=== PATIENT | female | born 1980 | race Caucasian/White ===

== ENCOUNTER 2018-07-29 01:25 | Outpatient (CLI) | payer BC ==
[~2018-07-29 01:25] MED LIST: METH4TAB3 PO; METH500T PO
== END 2018-07-29 23:59 | disposition home or self-care (01) ==
LOC: DIABETIC 01:25
PROVIDERS: ATTEND Surgery
DX: E66.01 Morbid (severe) obesity due to excess calories (principal); Z72.89 Other problems related to lifestyle
CPT/HCPCS: 97802

== ENCOUNTER 2018-09-09 02:24 | Outpatient (CLI) | payer BC | END 2018-09-09 23:59 | disposition home or self-care (01) | LOC: DIABETIC 02:24 | PROVIDERS: ATTEND Surgery | DX: E66.01 Morbid (severe) obesity due to excess calories (principal) | CPT/HCPCS: G0108 ==

== ENCOUNTER 2019-02-24 08:16 | Outpatient (CLI) | payer BC, OTHER | END 2019-02-24 23:59 | disposition home or self-care (01) | LOC: RAD 08:16 | PROVIDERS: ATTEND Family Medicine | DX: M47.816 Spondylosis without myelopathy or radiculopathy, lumbar region (principal); M51.27 Other intervertebral disc displacement, lumbosacral region; M48.061 Spinal stenosis, lumbar region without neurogenic claudication; Z87.891 Personal history of nicotine dependence | CPT/HCPCS: 72148 ==

== ENCOUNTER → 2019-04-23 | Outpatient (CLI) | payer OTHER ==
[2019-04-23 10:11] LABS: BASOPHILS % (AUTO) 0.2 % (0-1); EOSINOPHILS # (AUTO) 0.1 X10'3 (0-0.9); EOSINOPHILS % (AUTO) 1.9 % (0-6); HEMATOCRIT 39.5 % (35.0-45.0); LYMPHOCYTES % (AUTO) 34.1 % (21-51); MEAN CORPUSCULAR HEMOGLOBIN 27.4 PG (27.0-31.0); MEAN CORPUSCULAR VOLUME 83.2 FL (78-98); MEAN PLATELET VOLUME 9.8 FL (7.4-10.4); MONOCYTES # (AUTO) 0.4 X10'3 (0-0.9); MONOCYTES % (AUTO) 6.7 % (2-12); NEUTROPHILS # (AUTO) 3.3 X10'3 (1.8-7.7); NEUTROPHILS % (AUTO) 57.1 % (42-75); PLATELET COUNT 215 X10'3 (140-440); RED BLOOD COUNT 4.75 X10'6 (4.20-5.60); WHITE BLOOD COUNT 5.8 X10'3 (4.5-11.0)
[2019-04-23 10:32] LABS: ALANINE AMINOTRANSFERASE 19 U/L (12-78); ALBUMIN 3.4 G/DL (3.4-5.0); ALKALINE PHOSPHATASE 39 IU/L (46-116); ANION GAP 6 (8-16); ASPARTATE AMINO TRANSFERASE 13 U/L (10-37); BILIRUBIN,TOTAL 0.5 MG/DL (0.1-1.0); BLOOD UREA NITROGEN 15 MG/DL (7-18); BUN/CREATININE RATIO 16.9 (6.6-38.0); CALCIUM 8.6 MG/DL (8.5-10.1); CHLORIDE 107 MMOL/L (99-107); CHOLESTEROL 145 MG/DL (0-200); CREATININE 0.89 MG/DL (0.40-0.90); GLUCOSE 93 MG/DL (70-104); HDL CHOLESTEROL 48 MG/DL (35-60); LDL CHOLESTEROL 88 MG/DL (50-100); POTASSIUM 3.7 MMOL/L (3.5-5.1); SODIUM 142 MMOL/L (135-145); TOTAL CARBON DIOXIDE 29.2 MMOL/L (24-32); TOTAL PROTEIN 6.9 G/DL (6.4-8.2); TRIGLYCERIDES 57 MG/DL (20-135); eGFR 72 ML/MIN
[2019-04-24 08:22] LABS: ESTRADIOL 38.5 pg/mL (.); FSH, SERUM 6.2 mIU/mL (.); LUTEINIZING HORMONE 6.8 mIU/mL (.); PROLACTIN 7.6 ng/mL (4.8-23.3); SEX HORM BINDING GLOB, SERUM 52.6 nmol/L (24.6-122.0)
[2019-04-24 15:26] LABS: INSULIN 4.3 uIU/mL (2.6-24.9)
[2019-04-25 11:58] LABS: TESTOSTERONE, FREE, DIRECT 5.5 pg/mL (0.0-4.2)
== END | disposition home or self-care (01) ==
LOC: LAB 09:24
PROVIDERS: ATTEND Family Medicine
DX: E78.5 Hyperlipidemia, unspecified (principal); M54.41 Lumbago with sciatica, right side; G89.29 Other chronic pain; R53.83 Other fatigue; Z76.89 Persons encountering health services in other specified circumstances; Z87.891 Personal history of nicotine dependence
CPT/HCPCS: 36415; 80053; 80061; 82670; 83001; 83002; 83525; 84146; 84270; 84402; 84403; 84439; 84443; 85025